=== PATIENT | male | born 1965 | race Caucasian/White ===

== ENCOUNTER → 2019-05-20 | Outpatient (CLI) | payer MEDICAID, SELFPAY ==
--- NOTE | 2019-05-20 12:41 | REP ---
Chest x-ray: Two views. History: Shortness of breath. Comparison chest x-ray: May 25, 2015. Findings: A left-sided Wtcyuw-A-Nvhw catheter is again noted in place unchanged. Lungs are symmetrically aerated and clear. There is mild linear fibrosis in the left base unchanged. Heart is not enlarged. Pulmonary vasculature is not increased. No significant bony abnormality is seen. Impression: No active disease. Electronically Signed by Madi Hernandez MD 05/20/2019 12:32 P
== END ==
LOC: M LRY 10:18
PROVIDERS: ATTEND Physician Assistant Medical
DX: R06.02 Shortness of breath (principal); R07.9 Chest pain, unspecified

== ENCOUNTER → 2019-07-03 | Outpatient (CLI) | payer BC ==
--- NOTE | 2019-07-04 08:09 | REP ---
Clinical: Shortness of breath. History of testicular cancer and prior orchiectomy. Technique: Axial noncontrast images from the thoracic inlet to the upper abdomen with coronal and sagittal re-formations. Findings: Lung baxter demonstrate changes related to early mild emphysematous disease with chronic interstitial changes and mild primarily lower lobe bronchiectasis. No focal acute consolidation, significant nodule or mass lesion. No pleural effusion. No pneumothorax. No significant adenopathy. Mediastinum demonstrates mild atherosclerotic changes of the thoracic aorta and coronary arteries without aortic aneurysm or cardiomegaly. Pgynsl-R-Cabk identified with tip at the brachiocephalic/SVC confluence. Surrounding musculoskeletal structures without focal osseous abnormality. Limited upper abdomen demonstrates normal bilateral adrenal glands and evidence for cholelithiasis. Impression: Chronic changes most compatible with mild/early emphysematous disease. Electronically Signed by Medhat Jose MD 07/04/2019 08:01 A
== END ==
LOC: M RAD 13:15
PROVIDERS: ATTEND Internal Medicine Pulmonary Disease
DX: R06.02 Shortness of breath (principal)

== ENCOUNTER → 2019-07-11 | Outpatient (CLI) | payer BC ==
[~2019-07-11] MED LIST: METHACHOLINE KIT (J7674) INH ONE
--- NOTE | 2019-07-11 13:23 | PFTRPT ---
Height: 66.00 Inches Weight: 210.00 Lbs BSA: 2.04 Diagnosis: R06.02 DATE OF PROCEDURE: 07/11/2019 ORDERED BY: Dr. Villegas INTERPRETATION: Study of excellent technical quality. Under protocol, methacholine was administered. Even after a maximal dose of 25 mg or 188.875 CDUs, no provocation dose ever achieved. IMPRESSION: Negative methacholine challenge study. MTDD
== END ==
LOC: M CARPUL 12:30
PROVIDERS: ATTEND Internal Medicine Pulmonary Disease
DX: R06.02 Shortness of breath (principal)
CPT/HCPCS: 94070; J7674

== ENCOUNTER → 2019-12-08 | Outpatient (CLI) | payer BC ==
[~2019-12-08] MED LIST changes: +ALLO100T PO; +ASPI81TA26 PO; +HYDR25TAB PO; +LIDOCAINE 1% MDV 20ML VIAL As Ordered ONE; +LIPI10TA PO; -METHACHOLINE KIT (J7674) INH ONE; +MIDAZOLAM INJ 2MG/2ML VIAL (J2250 PER 1MG) As Ordered ONE; +PROZ20CA11 PO; +ceFAZolin 1GM VIAL (J0690 PER 500MG) As Ordered ONE; +diphenhydrAMINE 50MG/ML VIAL (J1200) As Ordered ONE; +fentaNYL 100 MCG/2 ML INJECTION (J3010) As Ordered ONE
--- NOTE | 2019-12-08 09:27 | POST-OPPD ---
Postoperative Procedure Note Date Of Procedure: Dec 08, 2019 Time Of Procedure: 09:18 Port Removal / Explant Clinical Information:Patient with history of testicular cancer. Port placed 15 years ago. Port has not been accessed or flushed in last 10 years. Patient referred for port removal by nephrology for venous preservation. Physician: Dr. Dorantes Procedure: The patient was advised of the benefits, risks, and alternatives of the procedure and informed consent was obtained. A time out was performed with verification of the patient's name, MRN, site of procedure, and type of procedure to be performed. The patient was positioned in the supine position on the angiographic table. The site was prepped and draped in the usual sterile fashion. Moderate sedation was performed by the physician including the presence of an independent trained observer who assisted in monitoring the patient's level of consciousness and physiological status. Following the administration of fentanyl and Versed, the physician spent time 60 minutes of continuous emtj-zm-[id number] time with the patient. A stippler radiograph reveals a left-sided IJ port. Tip projecting over the brachiocephalic vein. Ultrasound of the left neck demonstrates catheter entering the vein at the internal jugular/subclavian junction. The soft tissues overlying the port were anesthetized with lidocaine. An incision was made over the port using a 15 blade scalpel in the location of the prior incision. The first 4 cm of the catheter was then freed with blunt dissection and extracted. However, beyond this, further catheter could not be retracted. Additional blunt dissection was performed along the length of the catheter with gentle traction but the catheter could not be freed. Any further traction at this point may cause catheter fracture. Therefore. the catheter was looped back into the incision. A single deep Vicryl suture was used to appose the sides of the incision. Sterile dressing was applied to the site. The patient tolerated the procedure well and was returned to the PRU in stable condition. EBL:Less than 5 mL Complications:None. Conclusions: Unsuccessful removal of left-sided chest port. The catheter is tethered in the tunnel and at the venotomy and will require cut down. I discussed the case with Dr. Gaston who will see the patient in his outpatient office and proceed from there. Patient to follow-up in IR clinic in 2 weeks for incision check. His incision is essentially left to heal by secondary intention as the port has already been exposed to the environment. CC WILSON Miles MD Dec 08, 2019 09:27
[2019-12-08 10:45] VITALS: BP 101/54
== END ==
LOC: M IRPRO 07:44
PROVIDERS: ATTEND Radiology Diagnostic Radiology
DX: Z45.2 Encounter for adjustment and management of vascular access device (principal); Z85.47 Personal history of malignant neoplasm of testis
CPT/HCPCS: 36590; 99152; 99153; J0690; J1200; J1644; J2250; J3010

== ENCOUNTER → 2019-12-26 | Outpatient (POV) | payer BC ==
[~2019-12-26] MED LIST changes: -LIDOCAINE 1% MDV 20ML VIAL As Ordered ONE; -MIDAZOLAM INJ 2MG/2ML VIAL (J2250 PER 1MG) As Ordered ONE; -ceFAZolin 1GM VIAL (J0690 PER 500MG) As Ordered ONE; -diphenhydrAMINE 50MG/ML VIAL (J1200) As Ordered ONE; -fentaNYL 100 MCG/2 ML INJECTION (J3010) As Ordered ONE
--- NOTE | 2019-12-27 13:01 | IRPN ---
[facility] IR Progress Note IR Progress Note DATE: Dec 26, 2019 FOLLOW-UP: Status post failed port removal. Patient states the incision site is healed. No fevers or chills. Patient is due to follow up with general surgery for further evaluation. No further follow-up scheduled. Thank you for this referral Allergies Coded Allergies: No Known Drug Allergies (Verified Allergy, Unknown, 07/07/19) WILSON DE JESUS MD Dec 27, 2019 13:01
== END ==
LOC: M TMIRPOV 10:35
PROVIDERS: ATTEND Radiology Diagnostic Radiology
DX: Z45.2 Encounter for adjustment and management of vascular access device (principal)